=== PATIENT | female | born 1930 | race Caucasian/White ===

== ENCOUNTER → 2017-04-30 | Outpatient (CLI) | payer MEDICARE, BC ==
[~2017-04-30] MED LIST: ATROVASTATIN; ATROVASTATIN PO; COREG DPS3.125 MG PO; DELTASONE DPS10 MG PO; DESYREL-DPS50 MG PO; DUONEB DPS3 ML IH; MAALOX DPS30 ML PO; MILK OF MAGNESI10 ML PO; MIRALAX PACKET17 GM PO; MUCINEX600 MG PO; NORVASC5 MG PO; OMNICEF DPS300 MG PO; PROTONIX40 MG PO; SURFAK DPS240 MG PO; TENORMIN50 MG PO; TRIAZOLAM0.125 MG PO; TYLENOL DPS325 MG PO; VIBRAMYCIN-DPS100 M2 PO; ZESTRIL DPS20 MG PO; ZYLOPRIM-DPS100 MG PO; ZYLOPRIM100 MG PO
== END | disposition home or self-care (01) ==
LOC: RAD.S 16:31
DX: C85.80 Other specified types of non-Hodgkin lymphoma, unspecified site (principal); R09.02 Hypoxemia; J90 Pleural effusion, not elsewhere classified; R91.8 Other nonspecific abnormal finding of lung field